=== PATIENT | female | born 1995 | race African-American/Black ===

== ENCOUNTER 2017-07-27 00:55 | Emergency (ER) | payer OTHER ==
[~2017-07-27] VITALS: Ht 175.3 cm; Wt 63.5 kg
[~2017-07-27 00:55] MED LIST: AMOXICILLIN 50500 MG PO; MOBIC7.5 MG PO; NORCO 5-325 TA1 EACH PO; PHENERGAN 25 MG25 M1 PO; ZANTAC 150MG T150 MG PO
[2017-07-27] MEDS ORDERED: TRAMADOL 50 MG50 MG PO (01:52)
[2017-07-27] MEDS ORDERED: AMOXICILLIN 50500 M1 PO (01:52)
[2017-07-27] MEDS ORDERED: NAPROSYN500 MG PO (01:52)
[2017-07-27] MEDS ORDERED: ROBAXIN500 MG PO (01:53)
[2017-07-27 02:37] VITALS: BP 96/56
== END 2017-07-27 02:38 | disposition home or self-care (01) ==
LOC: ER 00:55
DX: K02.9 Dental caries, unspecified (principal); K04.7 Periapical abscess without sinus; M26.69 Other specified disorders of temporomandibular joint; K01.1 Impacted teeth; F17.210 Nicotine dependence, cigarettes, uncomplicated

== ENCOUNTER 2018-03-27 22:07 | Emergency (ER) | payer OTHER ==
[~2018-03-27] VITALS: Ht 175.3 cm; Wt 74.4 kg
[~2018-03-27 22:07] MED LIST changes: +AMOXICILLIN 50500 M1 PO; +NAPROSYN500 MG PO; +ROBAXIN500 MG PO; +TRAMADOL 50 MG50 MG PO
[2018-03-27 22:12] VITALS: BP 107/64
[2018-03-27] MEDS ORDERED: TYLENOL325 MG PO (22:18)
[2018-03-27 23:09] LABS: HEMOGLOBIN 13.8 gm/dL (12.0-15.0); MCH 32.6 pg (26.0-34.0); MCHC 35.3 g/dL (28.0-37.0); MCV 92.2 fL (80.0-100.0); RBC 4.23 mil/uL (4.20-5.00); RDW 12.8 % (10.5-14.5); WBC 7.7 thou/uL (4.0-11.0)
[2018-03-27 23:20] LABS: CALCIUM 8.9 mg/dL (8.5-10.1); CREATININE 0.8 mg/dL (0.6-1.0); POTASSIUM 3.6 mmol/L (3.5-5.1)
[2018-03-28] MEDS ORDERED: METROGEL-VAGINA70 GM VAG (01:09)
[2018-04-02 13:08] LABS: NEISSERIA GONORRHEA-PCR Negative (Negative)
== END 2018-03-28 01:25 | disposition left against medical advice (07) ==
LOC: ER 22:07
PROVIDERS: Emergency Medicine
DX: O23.599 Infection of other part of genital tract in pregnancy, unspecified trimester (principal); N76.0 Acute vaginitis; O20.0 Threatened abortion; B96.89 Other specified bacterial agents as the cause of diseases classified elsewhere; Z3A.00 Weeks of gestation of pregnancy not specified; F17.210 Nicotine dependence, cigarettes, uncomplicated; Z88.6 Allergy status to analgesic agent